=== PATIENT | female | born 1970 | race Caucasian/White ===

== ENCOUNTER → 2024-06-25 | Day surgery (SDC) | payer BC ==
[~2024-06-25] MED LIST: ACETAMINOPHEN 1000 MG/100 ML 100 ML IV ONE; B-12 5,000 MCG1 EACH; BIOTIN10 MG; CALCIUM ACETAT667 MG PO; CYCLOBENZAPRINE5 MG PO; D3-5000125 MCG; DEXAMETHASONE SOD PHOS INJ 4 MG/ML SDV ONE; ESTRADIOL1 MG PO; FENTANYL CITRATE/PF 100MCG/2 ML INJ ONE; LIDOCAINE HCL 2% LOCAL INJ 5 ML SDV VIAL INJ ONE; MIDAZOLAM HCL 2 MG/2 ML VIAL ONE; ONDANSETRON HCL INJ 2MG/ML 2ML 2 MG/ML VIAL ONE; PROPOFOL IV EMULSION 10 MG/ML 20 ML VIAL ONE; SEVOFLURANE INHAL SOLN 250 ML PEN BTL ONE; TRIPLE ACTION JOINT PO
[2024-06-25] MEDS: LACTATED RINGER'S 1,000 ML ONE (06:53)
[2024-06-25 10:01] VITALS: TEMP 97.5
[2024-06-25 10:55] VITALS: BP 147/88; PULSE 57; RESP 16; O2SAT 99
== END | disposition home or self-care (01) ==
LOC: OR 06:22
PROVIDERS: ATTEND Specialist
DX: M23.204 Derangement of unspecified medial meniscus due to old tear or injury, left knee (principal); M22.42 Chondromalacia patellae, left knee; M65.862 Other synovitis and tenosynovitis, left lower leg; M71.22 Synovial cyst of popliteal space [Baker], left knee; Z88.0 Allergy status to penicillin; Z88.8 Allergy status to other drugs, medicaments and biological substances; Z91.040 Latex allergy status; Z01.810 Encounter for preprocedural cardiovascular examination; Z68.31 Body mass index [BMI] 31.0-31.9, adult
CPT/HCPCS: 29881; 93005; J0131; J0690; J1100; J2003; J2250; J2405; J2704; J3010; J7121